=== PATIENT | female | born 1955 | race Caucasian/White ===

== ENCOUNTER 2022-04-25 20:55 | Outpatient (CLI) | payer MEDICARE, SELFPAY | END 2022-04-25 20:56 | disposition home or self-care (01) | LOC: SLEEP 21:03 | PROVIDERS: PCP Family Medicine; Visit Provider Internal Medicine | DX: G47.33 Obstructive sleep apnea (adult) (pediatric) (principal) | CPT/HCPCS: 95810 ==

== ENCOUNTER 2022-06-12 10:18 | Emergency (ER) | payer MEDICARE, SELFPAY ==
[2022-06-12] VITALS (16 sets, daily range): BP systolic 146–181; BP diastolic 94–109; PULSE 50–65; RESP 14; TEMP 36.7; O2SAT 91–97; BMI 34.3
--- NOTE | 2022-06-12 10:38 | ED.CHESTPAIN ---
HPI - Chest Pain General Time Seen by Provider: 10:38 Date Seen: 06/12/22 Chief Complaint: Chest Pain Stated Complaint: Chest pain, shortness of breath Time Seen by Provider: 06/12/22 10:38 Source: patient and RN notes reviewed Mode of arrival: ambulatory Limitations: no limitations History of Present Illness HPI narrative: She lives a very pleasant 66-year-old female with a history of recent fall involving injury of her right arm and right side of her chest to comes to the emergency room today with anterior left pain. Patient states that she does deal with acid reflex as well. This morning after she got up on the way to [facility] she started experiencing chest pain left anterior chest. This was associated with shortness of breath. She states that now she just has some mild heaviness. She has not been coughing. She has not have a fever. She does not have a history of heart problems. She states that in the past she thought she had had a heart issue but was diagnosed with acid reflux. She takes famotidine as needed and did take a dose this morning. She has been using pain relievers since the fall a few days ago. She tends to use more Tylenol than ibuprofen. She notes that she has been belching quite a bit as well. She did take a full aspirin this morning given her chest pain. Risk factors for her include ARCHIE recent diagnosis. Patient is typically seen by Dr. Minor of the [facility] but states that since she was coming to [place] for [facility] she thought it would be better to come to the [facility]. Patient has not had recent chills or fever, sore throat, runny nose, cough, unusual lower extremity edema or history of DVT. Patient notes being seen in the clinic this past week at which time they did x-rays of the right arm but did not do any chest x-rays. Patient notes that she also has bruising under her right breast. Related Data Home Medications Medication Instructions Recorded Confirmed trazodone 100 mg tablet 100 mg PO HS 06/12/22 06/12/22 venlafaxine 75 mg tablet 75 mg PO DAILY 06/12/22 06/12/22 Previous Rx's Medication Instructions Recorded omeprazole 40 mg capsule,delayed 40 mg PO DAILY #7 caps 06/12/22 release Allergies Allergy/AdvReac Type Severity Reaction Status Date / Time Sulfa (Sulfonamide Allergy Unknown Hives Verified 12/18/22 12:09 Antibiotics) Review of Systems Status of ROS Reports: 10 or more systems reviewed and unremarkable except as noted in History and below Const Denies: fever Eyes Denies: change in vision ENMT Denies: neck pain or difficulty swallowing Cardio Reports: chest pain and shortness of breath with exertion; Denies: palpitations or swelling of feet/ankles Resp Reports: shortness of breath GI Denies: difficulty swallowing Denies: painful urination or urinary frequency Musculo Reports: extremity pain (Right arm); Denies: neck pain Integ/Breast Denies: rash Neuro Denies: headache or weakness in extremities PFSH PFS Social History Smoking Status: Former smoker How often do you have a drink containing alcohol: monthly or less AUDIT-C Alcohol total score: 1 Non-prescribed substance use: denies use Exam Narrative Exam Narrative: Alert and oriented. External ears eyes nose clear. Neck is supple. Heart with regular rate and rhythm without murmur rub. Lungs are clear in all lung kiser. She has tenderness over the left anterior ribcage without crepitus. She has discomfort when moving her right arm but I do not see any signs of trauma. She has area ecchymosis approximately 1 and half by 3 cm over the right lower rib cage/over the liver. No significant tenderness with palpation here. Abdomen is otherwise soft. Lower extremities are with scant peripheral edema. Pedal pulses are intact and symmetrical. Pelvis appears stable Const Vital Signs, click to edit/add: Vital Signs - 24 hr 06/12/22 10:24 06/12/22 10:29 Temperature 98.0 F Pulse Rate [Pulse Oximeter] 65 Respiratory Rate 14 Blood Pressure [Left Upper Arm] 181/109 H Pulse Oximetry 94 94 Oxygen Delivery Method Room Air Documenting provider has reviewed patient's vital signs: yes Course Course Hospital Course: Differential diagnosis includes but is not limited to acute coronary syndrome, pericarditis, esophagitis, musculoskeletal chest wall pain, hemothorax, reflux. Patient will have EKG, troponin, cardiac monitoring, IV placement, oximetry, CBC, comprehensive, D-dimer, CRP, urinalysis. Patient did receive full aspirin this morning. Vital Signs Vital signs: Initial Vital Signs Temperature 98.0 F 06/12/22 10:24 Temperature Source Temporal Artery Scan 06/12/22 10:24 Pulse Rate 65 06/12/22 10:24 Pulse Rhythm 06/12/22 10:24 Respiratory Rate 14 06/12/22 10:24 Respiratory Effort 06/12/22 10:24 Respiratory Depth Normal 06/12/22 10:24 Blood Pressure 181/109 H 06/12/22 10:24 Blood Pressure Mean 133 06/12/22 10:24 Blood Pressure Position Sitting 06/12/22 10:24 Pulse Oximetry 94 06/12/22 10:24 Oxygen Delivery Method 06/12/22 10:24 Vital Signs Temperature 98.0 F 06/12/22 10:24 Pulse Rate 65 06/12/22 10:24 Respiratory Rate 14 06/12/22 10:24 Blood Pressure 181/109 H 06/12/22 10:24 Pulse Oximetry 94 06/12/22 10:24 Oxygen Delivery Method 06/12/22 10:24 Temperature 98.0 F 06/12/22 10:24 Pulse Rate 53 L 06/12/22 14:32 Respiratory Rate 14 06/12/22 10:24 Blood Pressure 161/95 H 06/12/22 14:32 Pulse Oximetry 95 06/12/22 14:32 Oxygen Delivery Method 06/12/22 10:24 MDM - Chest Pain Medical Records Data Medical records narrative: No medical records within our system Lab Data Attestation: I reviewed the patient's lab results. Labs: Lab Results 06/12/22 06/12/22 06/12/22 Range/Units 10:42 10:42 10:42 WBC 6.26 (4.50-11.00) K/uL RBC 4.63 (4.00-5.20) m/uL Hgb 14.0 (12.0-16.0) gm/dL Hct 42.3 (33.0-51.0) % MCV 91 (80-100) fL MCH 30 (26-34) pg MCHC 33 (32-36) gm/dL RDW Coeff of Dial[place] 12.0 (11.5-15.5) % Plt Count 181 (140-440) K/uL Neut % (Auto) 69.7 (42.0-72.0) % Lymph % (Auto) 15.8 L (20-44) % [place] % (Auto) 8.8 (0.0-11.0) % Eos % (Auto) 5.3 (0.0-7.0) % Baso % (Auto) 0.2 (0.0-3.0) % Neut # (Auto) 4.37 (1.7-7.0) K/uL Lymph # (Auto) 1.00 (0.90-2.90) K/uL [place] # (Auto) 0.60 (0.00-0.90) K/UL Eos # (Auto) 0.33 (0.00-0.50) K/uL Baso # (Auto) 0.01 (0.00-0.30) K/uL D-Dimer Quant (PE/DVT) 2.33 H (0.00-0.50) ug/ml Sodium 140 (135-149) mmol/L Potassium 3.8 (3.6-5.1) mmol/L Chloride 108 (96-114) mmol/L Carbon Dioxide 25 (20-32) mmol/L BUN 10 (7-30) mg/dL Creatinine 0.7 (0.5-1.5) mg/dL Estimated Creat Clear 48.43 Estimated GFR 96 ml/min Glucose 118 H (60-115) mg/dL Calcium 8.6 (8.4-10.6) mg/dL Total Bilirubin 0.7 (0.1-1.5) mg/dL AST 20 (12-35) U/L ALT 17 (4-35) U/L Alkaline Phosphatase 59 (40-150) U/L Troponin I (0.01-0.04) ng/mL C-Reactive Protein 1.5 H (0.5-1.0) mg/dL Total Protein 7.3 (6.0-8.3) g/dL Albumin 4.3 (3.3-5.0) g/dL Lipase 75 (23-300) U/L Urine Color (Yellow) Urine Appearance (Clear) Urine pH (5.0-8.5) Ur Specific [place] (1.000-1.030) Urine Protein (Negative) Urine Glucose (UA) (Negative) Urine Ketones (Negative) Urine Blood (Negative) Urine Nitrite (Negative) Urine Bilirubin (Negative) Urine Urobilinogen (0.2-1.0) Ur Leukocyte Esterase (Negative) Urine RBC (0-2) Urine WBC (0-5) Ur Squamous Epith Cells (None-Few) Amorphous Sediment (None) Urine Bacteria (None) SARS-CoV-2 (PCR) (Negative) Influenza Type A (PCR) (Negative) Influenza Type B (PCR) (Negative) RSV (PCR) (Negative) 06/12/22 06/12/22 06/12/22 Range/Units 10:42 10:42 13:20 WBC (4.50-11.00) K/uL RBC (4.00-5.20) m/uL Hgb (12.0-16.0) gm/dL Hct (33.0-51.0) % MCV (80-100) fL MCH (26-34) pg MCHC (32-36) gm/dL RDW Coeff of Diallo (11.5-15.5) % Plt Count (140-440) K/uL Neut % (Auto) (42.0-72.0) % Lymph % (Auto) (20-44) % [place] % (Auto) (0.0-11.0) % Eos % (Auto) (0.0-7.0) % Baso % (Auto) (0.0-3.0) % Neut # (Auto) (1.7-7.0) K/uL Lymph # (Auto) (0.90-2.90) K/uL [place] # (Auto) (0.00-0.90) K/UL Eos # (Auto) (0.00-0.50) K/uL Baso # (Auto) (0.00-0.30) K/uL D-Dimer Quant (PE/DVT) (0.00-0.50) ug/ml Sodium (135-149) mmol/L Potassium (3.6-5.1) mmol/L Chloride (96-114) mmol/L Carbon Dioxide (20-32) mmol/L BUN (7-30) mg/dL Creatinine (0.5-1.5) mg/dL Estimated Creat Clear Estimated GFR ml/min Glucose (60-115) mg/dL Calcium (8.4-10.6) mg/dL Total Bilirubin (0.1-1.5) mg/dL AST (12-35) U/L ALT (4-35) U/L Alkaline Phosphatase (40-150) U/L Troponin I < 0.01 L (0.01-0.04) ng/mL C-Reactive Protein (0.5-1.0) mg/dL Total Protein (6.0-8.3) g/dL Albumin (3.3-5.0) g/dL Lipase (23-300) U/L Urine Color Yellow (Yellow) Urine Appearance Clear (Clear) Urine pH 7.5 (5.0-8.5) Ur Specific [place] 1.010 (1.000-1.030) Urine Protein Negative (Negative) Urine Glucose (UA) Negative (Negative) Urine Ketones Negative (Negative) Urine Blood Negative (Negative) Urine Nitrite Negative (Negative) Urine Bilirubin Negative (Negative) Urine Urobilinogen 0.2 (0.2-1.0) Ur Leukocyte Esterase Negative (Negative) Urine RBC 0-2 (0-2) Urine WBC 0-2 (0-5) Ur Squamous Epith Cells Few (None-Few) Amorphous Sediment Few A (None) Urine Bacteria None (None) SARS-CoV-2 (PCR) Negative SARS-CoV-2 (Negative) Influenza Type A (PCR) Negative PCR FLU A (Negative) Influenza Type B (PCR) Negative PCR FLU B (Negative) RSV (PCR) Negative PCR RSV (Negative) 06/12/22 Range/Units 13:34 WBC (4.50-11.00) K/uL RBC (4.00-5.20) m/uL Hgb (12.0-16.0) gm/dL Hct (33.0-51.0) % MCV (80-100) fL MCH (26-34) pg MCHC (32-36) gm/dL RDW Coeff of Diallo (11.5-15.5) % Plt Count (140-440) K/uL Neut % (Auto) (42.0-72.0) % Lymph % (Auto) (20-44) % [place] % (Auto) (0.0-11.0) % Eos % (Auto) (0.0-7.0) % Baso % (Auto) (0.0-3.0) % Neut # (Auto) (1.7-7.0) K/uL Lymph # (Auto) (0.90-2.90) K/uL [place] # (Auto) (0.00-0.90) K/UL Eos # (Auto) (0.00-0.50) K/uL Baso # (Auto) (0.00-0.30) K/uL D-Dimer Quant (PE/DVT) (0.00-0.50) ug/ml Sodium (135-149) mmol/L Potassium (3.6-5.1) mmol/L Chloride (96-114) mmol/L Carbon Dioxide (20-32) mmol/L BUN (7-30) mg/dL Creatinine (0.5-1.5) mg/dL Estimated Creat Clear Estimated GFR ml/min Glucose (60-115) mg/dL Calcium (8.4-10.6) mg/dL Total Bilirubin (0.1-1.5) mg/dL AST (12-35) U/L ALT (4-35) U/L Alkaline Phosphatase (40-150) U/L Troponin I < 0.01 L (0.01-0.04) ng/mL C-Reactive Protein (0.5-1.0) mg/dL Total Protein (6.0-8.3) g/dL Albumin (3.3-5.0) g/dL Lipase (23-300) U/L Urine Color (Yellow) Urine Appearance (Clear) Urine pH (5.0-8.5) Ur Specific [place] (1.000-1.030) Urine Protein (Negative) Urine Glucose (UA) (Negative) Urine Ketones (Negative) Urine Blood (Negative) Urine Nitrite (Negative) Urine Bilirubin (Negative) Urine Urobilinogen (0.2-1.0) Ur Leukocyte Esterase (Negative) Urine RBC (0-2) Urine WBC (0-5) Ur Squamous Epith Cells (None-Few) Amorphous Sediment (None) Urine Bacteria (None) SARS-CoV-2 (PCR) (Negative) Influenza Type A (PCR) (Negative) Influenza Type B (PCR) (Negative) RSV (PCR) (Negative) Imaging Data Chest x-ray: Attestation: I have reviewed the pertinent imaging results. ECG Data Attestation: I personally reviewed and interpreted this ECG as follows: ECG interpretation date: 06/12/22 Discharge Plan Discharge Clinical Impression: Aortic aneurysm without rupture, Closed rib fracture, D-dimer, elevated Patient Disposition: Home, Self-Care Condition: Improved Additional Instructions: Today you were diagnosed with a rib fracture on the left side which is likely causing your chest discomfort. For pain we will have her use ibuprofen 400 mg every 8 hours as needed. In order to make sure we protect her stomach while on ibuprofen I will call in a prescription for omeprazole. This you should take in place of famotidine. Try to stop and do deep breathing exercises when possible. If pain persists your doctor may switch you to a short course of steroids. Today you were tested for possible heart problems. Your EKGs were reassuring with no at evidence of a heart attack today. You also had 2 blood tests called troponin both which were negative. You had no evidence of an arrhythmia. Because you had an elevation of your D-dimer and your oxygen levels were initially 92-93%, We did a CT today and this ruled out or did not show pulmonary embolism, hemothorax or blood in the lung cavity, or pneumonia. It did show an aortic aneurysm measuring 4 cm. Your doctor will likely have you undergo ultrasound yearly to make sure that this does not enlarge. The CT also showed some patchiness in the lungs on the right. I believe this to be contusion of the lungs from your recent fall. There is no evidence of pneumonia, COVID/RSV/influenza on test today. Initially when you came in your blood pressure was elevated but now has come down to acceptable limits but I would ask your doctor to recheck this when you see him. Please return to the [place] [facility] or ER/Clinic of your choice should you have worsening symptoms such as shortness of breath, worsening chest pain, fever, cough or onset of new symptoms. Prescriptions: New omeprazole 40 mg capsule,delayed release(DR/EC) 40 mg PO DAILY Qty: 7 2RF No Action trazodone 100 mg tablet 100 mg PO HS Label Comments: TAKE 2 TABLETS BY MOUTH AT BEDTIME venlafaxine 75 mg tablet 75 mg PO DAILY Follow Up/Referrals: Eduardo Minor MD [Primary Care Provider] - 7 Days (Dear Arabella Loveila was seen in the [place] [facility] for left anterior chest pain. EKG and cardiac enzymes were negative but a CT did show left 4th anterior rib fracture. She was also very tender to the touch in this area. She has a newly diagnosed 4 cm aortic aneurysm that she will be following up for. I will attempt to send my note to you. Happy holidays sincerely, Dr. Adriana Rogers) Stand Alone Forms: [employer] Info Instructions
--- NOTE | 2022-06-12 10:53 | CRLHL7_ITS ---
For Patients: As a result of the Century Cures Act, medical imaging exams and procedure reports are released immediately into your electronic medical record. You may view this report before your referring provider. If you have questions, please contact your health care provider. INDICATION: Chest pain. Shortness of breath. TECHNIQUE: AP portable chest. FINDINGS: Clear lungs. Normal heart size and pulmonary vascularity. Normal included skeleton. IMPRESSION: Negative chest. Dictated by Donn Landry MD @ 06/12/2022 11:39:56 AM (Electronically Signed)
[2022-06-12 11:03] LABS: Basophils Absolute Auto 0.01 K/uL (0.00-0.30); Basophils Percent Auto 0.2 % (0.0-3.0); Eosinophils Absolute Auto 0.33 K/uL (0.00-0.50); Eosinophils Percent Auto 5.3 % (0.0-7.0); Hematocrit 42.3 % (33.0-51.0); Immature Granulocytes Abs Auto 0.01 K/uL (0.00-0.30); Immature Granulocytes Pct Auto 0.2 %; Lymphocytes Percent Auto 15.8 % (20-44); Mean Corpuscular HGB Conc 33 gm/dL (32-36); Mean Corpuscular Hemoglobin 30 pg (26-34); Mean Corpuscular Volume 91 fL (80-100); Monocytes Percent Auto 8.8 % (0.0-11.0); Neutrophils Absolute Auto 4.37 K/uL (1.7-7.0); Neutrophils Percent Auto 69.7 % (42.0-72.0); Platelet Count* 181 K/uL (140-440); Red Blood Count 4.63 m/uL (4.00-5.20); White Blood Count* 6.26 K/uL (4.50-11.00)
[2022-06-12 11:08] LABS: Slide Review Reflex No
[2022-06-12 11:24] LABS: Albumin* 4.3 g/dL (3.3-5.0); Chloride* 108 mmol/L (96-114); Sodium* 140 mmol/L (135-149)
[2022-06-12 11:25] LABS: Potassium* 3.8 mmol/L (3.6-5.1)
[2022-06-12 11:27] LABS: Alkaline Phosphatase* 59 U/L (40-150); Aspartate Amino Transferase* 20 U/L (12-35); Bilirubin Total* 0.7 mg/dL (0.1-1.5); Carbon Dioxide* 25 mmol/L (20-32); Creatinine* 0.7 mg/dL (0.5-1.5); Est. Creatinine Clearance* 48.43; Estimated Glomerular Filt Rate 96 ml/min; Lipase* 75 U/L (23-300); Total Protein* 7.3 g/dL (6.0-8.3)
[2022-06-12 11:28] LABS: Alanine Aminotransferase* 17 U/L (4-35); Blood Urea Nitrogen* 10 mg/dL (7-30); Calcium* 8.6 mg/dL (8.4-10.6); Glucose* 118 mg/dL (60-115)
[2022-06-12 11:30] LABS: C Reactive Protein* 1.5 mg/dL (0.5-1.0); D Dimer Quantitative* 2.33 ug/ml (0.00-0.50)
[2022-06-12 11:42] LABS: PCR FLU A Negative PCR FLU A (Negative); PCR FLU B Negative PCR FLU B (Negative); PCR RSV Negative PCR RSV (Negative)
[2022-06-12 11:43] LABS: SARS PCR* Negative SARS-CoV-2 (Negative)
[2022-06-12 11:44] LABS: Troponin I* < 0.01 ng/mL (0.01-0.04)
--- NOTE | 2022-06-12 11:51 | CRLHL7_ITS ---
For Patients: As a result of the Century Cures Act, medical imaging exams and procedure reports are released immediately into your electronic medical record. You may view this report before your referring provider. If you have questions, please contact your health care provider. INDICATION: Chest pain, mild hypoxia, fell and hurt ribs. COMPARISON: Chest radiograph 06/12/2022. TECHNIQUE: CT of the chest with 95 cc of Isovue 370 IV contrast. Coronal and sagittal reconstructions. 3D post processing was performed. FINDINGS: Normal heart size. Mild aneurysmal dilation of the ascending thoracic aorta measuring 4.0 cm in AP dimension. Mild coronary artery and aortic vascular calcifications. Normal caliber central pulmonary arteries. Negative for acute pulmonary embolism. No pericardial effusion or mediastinal hematoma. Mildly prominent mediastinal and bilateral hilar lymph nodes are likely reactive. The thyroid gland is normal in appearance. No focal consolidation, pleural effusion, or pneumothorax. Patchy opacities in the posterior right upper lobe and perihilar right middle lobe are likely infectious or inflammatory. Minimal bibasilar atelectasis. 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 Calcified granulomas bilaterally. No central endobronchial lesion or bronchial wall thickening. Cholecystectomy. The visualized upper abdomen is otherwise unremarkable. Endplate spurring in the lower thoracic spine. Chronic appearing mild anterior wedging of T7. Age-indeterminate fracture of the left anterior 4th rib. IMPRESSION: 1. Negative for acute pulmonary embolism. 2. Mild aneurysmal dilation of the ascending thoracic aorta. 3. Patchy opacities in the right upper lobe and right middle lobe are likely infectious or inflammatory. 4. Age-indeterminate fracture of the left anterior 4th rib. Please note that all CT scans at this facility use dose modulation, iterative reconstruction, and/or weight-based dosing when appropriate to reduce radiation dose to as low as reasonably achievable. Dictated by Mary Quintanilla MD @ 06/12/2022 1:07:24 PM (Electronically Signed)
[2022-06-12] MEDS: KETOROLAC 15 MG/ML inj IVP (12:02)
[2022-06-12] MEDS: 0.9 % SODIUM CHLORIDE 500 ML 500 ML IV (12:02)
[2022-06-12 13:41] LABS: Appearance Urine Clear (Clear); Bilirubin Urine Negative (Negative); Blood Urine Negative (Negative); Color Urine Yellow (Yellow); Glucose Urine Negative (Negative); Ketones Urine Negative (Negative); Leukocyte Esterase Urine Negative (Negative); Nitrite Urine Negative (Negative); Protein Urine Negative (Negative); Urobilinogen Urine 0.2 (0.2-1.0); pH Urine 7.5 (5.0-8.5)
[2022-06-12 13:44] LABS: Amorphous Sediment Urine Few; RBC Urine 0-2 (0-2); Squamous Epithelial Cell Urine Few (None-Few); WBC Urine 0-2 (0-5)
[2022-06-12 14:13] LABS: Troponin I* < 0.01 ng/mL (0.01-0.04)
== END 2022-06-12 15:04 | disposition home or self-care (01) ==
PROVIDERS: Emergency Provider Family Medicine; PCP Family Medicine
DX: I71.9 Aortic aneurysm of unspecified site, without rupture (principal); S22.32XA Fracture of one rib, left side, initial encounter for closed fracture
CPT/HCPCS: 36415; 71045; 71260; 80053; 81001; 83690; 84484; 85025; 85379; 86140; 87502; 87634; 87635; 93005; 94761; 96374; 99284; 99285; J1885; J7120; Q9967

== ENCOUNTER 2023-02-07 20:38 | Outpatient (CLI) | payer MEDICARE, SELFPAY | END 2023-02-07 20:39 | disposition home or self-care (01) | LOC: SLEEP 20:39 | PROVIDERS: PCP Family Medicine; Visit Provider Nurse Practitioner | DX: G47.33 Obstructive sleep apnea (adult) (pediatric) (principal) | CPT/HCPCS: 95811; A9270 ==